=== PATIENT | female | born 1960 | race Caucasian/White ===

== ENCOUNTER 2017-02-04 10:25 | Emergency (ER) | payer OTHER ==
[~2017-02-04] VITALS: Ht 157.5 cm; Wt 48.1 kg
[2017-02-04] MEDS ORDERED: NORCO 10-325 T1 EAC1 PO (11:38)
[2017-02-04] MEDS ORDERED: FENTANYL PA50 MCG/HR TRANSDERM (11:38)
[2017-02-04] MEDS ORDERED: XANAX1 MG PO (11:39)
[2017-02-04 11:51] LABS: ANION GAP 12 mmol/L (7-16); BUN 13 mg/dL (7-18); CALCIUM 9.4 mg/dL (8.5-10.1); CHLORIDE 102 mmol/L (98-107); CO2 25 mmol/L (21-32); CREATININE 0.7 mg/dL (0.6-1.0); GLUCOSE 105 mg/dL (74-106); SODIUM 139 mmol/L (136-145)
[2017-02-04 13:04] LABS: ABSOLUTE NEUTROPHILS 4.6 thou/uL (1.4-8.2); BASOPHILS 0.4 % (0.0-2.0); HEMATOCRIT 37.3 % (37.0-47.0); HEMOGLOBIN 12.7 gm/dL (12.0-15.0); LYMPHOCYTES 18.6 % (24.0-44.0); MANUAL DIFF NO; MCH 33.8 pg (26.0-34.0); MCV 99.3 fL (80.0-100.0); PLATELET COUNT 210 thou/uL (150-400); RBC 3.75 mil/uL (4.20-5.00); RDW 12.6 % (10.5-14.5); WBC 6.1 thou/uL (4.0-11.0)
[2017-02-04] MEDS ORDERED: NAPROSYN500 MG PO (13:23)
[2017-02-04] MEDS ORDERED: PERCOCET 5-3251 EACH PO (13:23)
[2017-02-04 13:48] VITALS: BP 128/91
== END 2017-02-04 13:50 | disposition home or self-care (01) ==
LOC: ER 10:25
PROVIDERS: Emergency Medicine
DX: M54.2 Cervicalgia (principal); M54.5 Low back pain; Z90.49 Acquired absence of other specified parts of digestive tract; Z90.710 Acquired absence of both cervix and uterus; Z98.890 Other specified postprocedural states; F10.99 Alcohol use, unspecified with unspecified alcohol-induced disorder